=== PATIENT | male | born 2000 | race Caucasian/White ===

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

== ENCOUNTER 2024-01-25 17:22 | Emergency (ER) | payer BC, SELFPAY ==
[2024-01-25 17:45] VITALS: BP 163/101; PULSE 93; RESP 18; TEMP 36.9; O2SAT 96; BMI 39.9
--- NOTE | 2024-01-25 17:50 | XR_ITS ---
PROCEDURE INFORMATION: Exam: XR Abdomen Exam date and time: 01/25/2024 5:46 PM Age: 23 years old Clinical indication: Constipation TECHNIQUE: Imaging protocol: Radiologic exam of the abdomen. Views: Frontal supine view of the abdomen. 1 View. COMPARISON: [id number] XR lumbar spine min 4V 04/20/2018 3:54 PM FINDINGS: Gastrointestinal tract: Moderate fecal burden in the proximal colon. Otherwise, Unremarkable bowel gas pattern. Intraperitoneal space: No free air. Bones/joints: Unremarkable. IMPRESSION: Moderate fecal burden in the proximal colon. Otherwise, Unremarkable bowel gas pattern.
--- NOTE | 2024-01-25 17:54 | EXP.UTC ---
Discharge Plan Disposition Patient Disposition: Home, Self-Care Condition: Good Prescriptions Prescriptions: New polyethylene glycol 3350 [Miralax] 17 gram/dose powder 17 g PO DAILY PRN (Reason: constipation) Qty: 510 0RF Referrals Follow up/Referrals: Alysha De La Torre [Primary Care Provider] - See instructions Activity Restrictions/Add. Instructions Additional Instructions/Restrictions: Drink Magneisum Citrate as directed Take Miralax as directed Follow up with your Family Doctor if no improvement or any worsening of symptoms Return if needed Straight to ER if any life threatening symptoms, worsening of pain or vomiting Clinical Impressions Clinical Impression: Constipation Stand Alone Forms Stand Alone Forms: Work/School Release Instructions Patient Instructions: DI for Constipation, Magnesium Citrate Print Language Print Language: Korean Discharge ED Provider: Bela Villanueva [facility] [place] General Stated complaint: Constipation,abdominal pain Mode of Arrival: Ambulatory Source of Information: Patient Limitations: No Limitations Time Seen by Provider: 01/25/24 17:54 Description of Symptoms (Recalled from Triage Doc. by RN): PATIENT C/O MID-ABDOMINAL PAIN X 4 DAYS. HE STATES HE NORMALLY HAS A BOWEL MOVEMENT DAILY, AND HIS LAST NORMAL BOWEL MOVEMENT WAS ON FRIDAY (01/20). PATIENT STATES HE DID VOMIT A LITTLE ONCE TODAY, BUT STATES HE THINKS IT WAS DUE TO COUGHING. HEENT Symptoms (Recalled from RN notes): No Resp Symptoms (Recalled from RN notes): No Skin Symptoms (Recalled from RN notes): No MS Symptoms (Recalled from RN notes): No Functional Status (Recalled from RN notes): WNL History of Present Illness Provider Complaint: Patient states that he feels like he is constipated States he has been having discomfort around his naval area, States he normally has a bowel movement daily but his last normal bowel movement was on Fri earlier today he had a coughing fit and it made him vomit but doesnt think it was from the constipation and denies vomiting stool Denies watery stools, denies fever Related Data Previous Rx's ?Medication ?Instructions ?Recorded polyethylene glycol 3350 17 17 g PO DAILY PRN constipation 01/25/24 gram/dose oral powder (Miralax) #510 grams Allergies Allergy/AdvReac Type Severity Reaction Status Date / Time No Known Allergies Allergy Verified 12/03/21 09:41 Worker's Comp Is this a Worker's Comp case?: No [facility] Disclaimer: The information contained in this section may have been updated after the patient was seen, as this information can be updated by other users. Surgical History (Updated 01/25/24 @ 17:54 by Meg Belcher RN) History of tonsillectomy Social History Smoking Status: Never smoker alcohol intake: never substance use type: denies use current occupational status: employed Travel in the last 8 weeks: None ROS Obtained: Yes All systems reviewed & no additional complaints except as documented and Yes Systems reviewed as appropriate & no additional complaints except as documented Constitutional Constitutional: Reports system reviewed and no additional complaints, except as documented and Reports as per HPI ENT Ears, Nose, Mouth, and Throat: Reports system reviewed and no additional complaints, except as documented and Reports as per HPI Cardiovascular Cardiovascular: Reports system reviewed and no additional complaints, except as documented and Reports as per HPI Respiratory Respiratory: Reports system reviewed and no additional complaints, except as documented and Reports as per HPI Gastrointestinal Gastrointestingal: Reports system reviewed and no additional complaints, except as documented, as per HPI, constipation, cramping (crampy like achy pain) and vomiting (x 1 earlier after coughing episode); Denies diarrhea, fecal incontinence, heartburn, hematochezia or melena Physical Exam General General appearance: alert and in no apparent distress ENT ENT exam: Present mucous membranes moist Respiratory Respiratory exam: Present normal lung sounds bilaterally; Absent respiratory distress or wheezes Cardiovascular Cardiovascular exam: Present regular rate, normal rhythm and normal heart sounds Abdominal Exam Abdominal exam: Present soft and normal bowel sounds; Absent distention or tenderness Neurological Exam Neurological exam: Present alert, oriented X3 and normal gait Medical Decision Making Medical Records Screening: Per USPSTF and CDC recommendations, given the prevalence of disease in our region, it is our hospital?s policy to screen for HIV and viral Hepatitis for all patients aged 18 and over and those with ongoing risk factors. Andre Inquiry Pt receiving controlled substance: No Andre was queried for this patient: No Vital Signs: 01/25/24 17:45 Temperature 98.5 F Temperature Source Oral Pulse Rate [Left Brachial] 93 H Respiratory Rate 18 Blood Pressure [Left Arm] 163/101 H Blood Pressure Mean [Left Arm] 121 Blood Pressure Source [Left Arm] Automatic Cuff Blood Pressure Position [Left Arm] Sitting 02 Sat by Pulse Oximetry 96 Oxygen Delivery Method Room Air Orders (Tests/Meds): ORDERS Category Date Time Status KUB (single view) [XR KUB] Stat Exams 01/25/24 17:50 Ordered Radiology Data #1: Image(s): KUB Image Reviewed: Yes I have reviewed radiologist's interpretation IMPRESSION: Moderate fecal burden in the proximal colon. Otherwise, Unremarkable bowel gas pattern.
[2024-01-25] MEDS: MAGNESIUM CITRATE 10OZ BOTTLE 10 OZ PO (19:11)
[2024-01-25 19:16] VITALS: BP 155/99; PULSE 93; RESP 18; TEMP 36.9; O2SAT 96
== END 2024-01-25 19:21 | disposition home or self-care (01) ==
PROVIDERS: Emergency Provider Nurse Practitioner; PCP Nurse Practitioner Family
DX: R10.815 Periumbilic abdominal tenderness (principal); K59.00 Constipation, unspecified
CPT/HCPCS: 74018; 99212; 99214; G0463

== ENCOUNTER 2024-02-11 16:56 | Emergency (ER) | payer BC, SELFPAY ==
[2024-02-11 17:18] VITALS: BP 126/76; PULSE 120; RESP 20; TEMP 37.6; O2SAT 97; BMI 38.2
--- NOTE | 2024-02-11 17:25 | EXP.UTC ---
Discharge Plan Disposition Patient Disposition: Home, Self-Care Condition: Good Prescriptions Prescriptions: New amoxicillin 875 mg tablet 875 mg PO Q12H Qty: 20 0RF [id number] [Bromfed DM] 2-30-10 mg/5 mL syrup 10 ml PO Q6H PRN (Reason: cold symptoms) Qty: 200 0RF Referrals Follow up/Referrals: Alysha De La Torre [Primary Care Provider] - See instructions Activity Restrictions/Add. Instructions Additional Instructions/Restrictions: *Monitor Temp, Over the counter Motrin or Tylenol as directed/as needed Tylenol every 4 hours and Motrin every 6 hours (as long as your family doctor has told you that you can take it) for fever or pain. and straight to ER if unable to lower temp less than 101.0 after medication given Rest Make sure to drink plenty of fluids *Sleep elevated *Humidifier/Vaporizer *Bromfed may cause drowsiness. Know how it effects you (your child) before driving, caring for small child, or sending your child to school. Not other antihistamines/allergy medications while taking bromfed Follow up IMMEDIATELY for new or worsening symptoms or no Noticeable improvement over the next 48-72 hours. 911 for difficulty breathing or swallowing Clinical Impressions Clinical Impression: Otitis media Stand Alone Forms Stand Alone Forms: Work/School Release Instructions Patient Instructions: DI for Otitis Media (Middle Ear Infection)-Child, Ear Infections (Alternative Therapy), DI for Fever (Symptom) -- Adult, DI for Viral Syndrome Print Language Print Language: Slovenian Discharge ED Provider: Bela Villanueva [facility] [place] General Stated complaint: cough, fever Mode of Arrival: Ambulatory Source of Information: Patient Time Seen by Provider: 02/11/24 17:25 Description of Symptoms (Recalled from Triage Doc. by RN): FEVER, YOUNGBLOOD AND COUGH HEENT Symptoms (Recalled from RN notes): Yes Resp Symptoms (Recalled from RN notes): Yes Skin Symptoms (Recalled from RN notes): No MS Symptoms (Recalled from RN notes): No Functional Status (Recalled from RN notes): WNL History of Present Illness Provider Complaint: Patient states that for the last couple of days he has been having fevers on and off, headache, pressure in his ears and cough States today he was still having fevers on and off and pressure in his ears so he came in to get checked States that niece was dx with viral infection today not sure if he may have caught something from her or not Related Data Previous Rx's ?Medication ?Instructions ?Recorded amoxicillin 875 mg tablet 875 mg PO Q12H #20 tabs 02/11/24 [id number]-[id number] 10 ml PO Q6H PRN cold symptoms 02/11/24 2 mg-30 mg-10 mg/5 mL oral syrup #200 mL (Bromfed DM) Allergies Allergy/AdvReac Type Severity Reaction Status Date / Time No Known Allergies Allergy Verified 12/03/21 09:41 Worker's Comp Is this a Worker's Comp case?: No [facility] Disclaimer: The information contained in this section may have been updated after the patient was seen, as this information can be updated by other users. Surgical History (Updated 01/25/24 @ 17:54 by Meg Belcher RN) History of tonsillectomy Social History Smoking Status: Never smoker alcohol intake: never substance use type: denies use current occupational status: employed Travel in the last 8 weeks: None ROS Obtained: Yes All systems reviewed & no additional complaints except as documented and Yes Systems reviewed as appropriate & no additional complaints except as documented Constitutional Constitutional: Reports system reviewed and no additional complaints, except as documented, Reports as per HPI, Reports fever(s) and Reports headache(s) ENT Ears, Nose, Mouth, and Throat: Reports system reviewed and no additional complaints, except as documented, Reports as per HPI, Reports otalgia and Reports headache(s) Cardiovascular Cardiovascular: Reports system reviewed and no additional complaints, except as documented and Reports as per HPI Respiratory Respiratory: Reports system reviewed and no additional complaints, except as documented, Reports as per HPI, Denies shortness of breath and Denies cough Neurologic Neurologic: Reports headache(s) Physical Exam General General appearance: alert and in no apparent distress ENT ENT exam: Present mucous membranes moist Expanded ENT Exam TM/Canal exam: Right TM: erythema and Bilateral TM: bulging Nose exam: Absent sinus tenderness Throat exam: Present normal inspection Respiratory Respiratory exam: Present normal lung sounds bilaterally; Absent respiratory distress or wheezes Cardiovascular Cardiovascular exam: Present regular rate, normal rhythm and tachycardia Neurological Exam Neurological exam: Present alert, oriented X3 and normal gait Medical Decision Making Medical Records Screening: Per USPSTF and CDC recommendations, given the prevalence of disease in our region, it is our hospital?s policy to screen for HIV and viral Hepatitis for all patients aged 18 and over and those with ongoing risk factors. Andre Inquiry Pt receiving controlled substance: No Andre was queried for this patient: No Vital Signs: 02/11/24 17:18 Temperature 99.6 F Temperature Source Oral Pulse Rate [Left Brachial] 120 H Respiratory Rate 20 Blood Pressure [Left Arm] 126/76 Blood Pressure Mean [Left Arm] 92 02 Sat by Pulse Oximetry 97 Lab Data Lab results reviewed: Yes I reviewed the patient's lab results. Medical Decision Narrative: Discussed COVID testing and URP with patient and he declined Will cover for otitis media and patient will follow up if fevers continue or if he develops any other symptoms
[2024-02-11 17:36] LABS: UTC Influenza A Antigen Negative (Negative); UTC Influenza B Antigen Negative (Negative)
[2024-02-11 17:44] VITALS: BP 126/76; PULSE 120; RESP 20; TEMP 37.6
== END 2024-02-11 17:48 | disposition home or self-care (01) ==
PROVIDERS: Emergency Provider Nurse Practitioner; PCP Nurse Practitioner Family
DX: H66.93 Otitis media, unspecified, bilateral (principal); R50.9 Fever, unspecified; R51.9 Headache, unspecified; R05.9 Cough, unspecified; H92.03 Otalgia, bilateral
CPT/HCPCS: 87804; 99212; G0381

== ENCOUNTER 2024-06-06 09:03 | Emergency (ER) | payer BC, SELFPAY ==
--- NOTE | 2024-06-06 09:53 | EXP.UTC ---
Discharge Plan Disposition Patient Disposition: Home, Self-Care Condition: Good Prescriptions Prescriptions: New cyclobenzaprine 10 mg Tablet 10 mg PO BID PRN (Reason: Muscle Spasm) Qty: 20 0RF methylprednisolone 4 mg Tablets,Dose Pack 4 mg PO DIRECTED 6 Days Qty: 21 0RF Rx Instructions: Take 1 pack as directed for 6 days Referrals Follow up/Referrals: Alysha De La Torre [Primary Care Provider] - See instructions Activity Restrictions/Add. Instructions Additional Instructions/Restrictions: Go home and rest. It would be best if you rested tomorrow too. No heavy lifting & No twisting for the next few days. Take the oral medications as directed. The muscle relaxer (cyclobenzaprine--Flexeril) will make you drowsy, so don't drive or operate heavy machinery after taking it. Don't start the oral steroids (medrol dose pack) until tomorrow, since you had the shots in here today. Follow up with your regular doctor. GO TO THE ER FOR ANY WORSENING SYMPTOMS OR CONCERN, ESPECIALLY BOWEL OR BLADDER ISSUES, SADDLE AREA NUMBNESS, FEVER, ETC Clinical Impressions Clinical Impression: Low back pain Stand Alone Forms Stand Alone Forms: Work/School Release Instructions Patient Instructions: Low Back Pain, DI for Low Back Pain, Cyclobenzaprine, Ketorolac Injection, Dexamethasone Injection Print Language Print Language: Tajik Discharge ED Provider: Irving Briscoe [facility] General Stated complaint: lower back pain Time Seen by Provider: 06/06/24 09:53 History of Present Illness Provider Complaint: He states that for around the past 1 week he has had worsening right sided low back pain that radiates down his right leg. He denies any falls or preceding traumas. He states that he has had pain like this before, but this time it seems worse that it has been. He denies any fever/chills/urinary symptoms. Related Data Previous Rx's ?Medication ?Instructions ?Recorded cyclobenzaprine 10 mg tablet 10 mg PO BID PRN Muscle Spasm #20 06/06/24 tabs methylprednisolone 4 mg tablets in 4 mg PO DIRECTED 6 days #21 tabs 06/06/24 a dose pack Allergies Allergy/AdvReac Type Severity Reaction Status Date / Time No Known Allergies Allergy Verified 12/03/21 09:41 [facility] Disclaimer: The information contained in this section may have been updated after the patient was seen, as this information can be updated by other users. Surgical History (Updated 01/25/24 @ 17:54 by Meg Belcher RN) History of tonsillectomy Social History Smoking Status: Never smoker alcohol intake: never substance use type: denies use current occupational status: employed Travel in the last 8 weeks: None Have you lived/traveled outside [place] in past 30 days?: No Contact w/someone who lives/traveled outside [place] past 30 days?: No Exposure to someone with infectious disease in past 14 days?: No Do you have a fever (greater than 100.4 F or 38 C)?: No Have you tested positive for COVID-19: No Exposed to someone with COVID-19 in past 14 days?: No Do you have a sore throat?: No Do you have a cough?: No Do you have any weakness?: No Do you have any diarrhea?: No Are you experiencing any unusual bleeding?: No Do you have any muscle aches/pain?: No Do you have any abdominal pain?: No Are you experiencing loss of taste or smell?: No ROS Obtained: Yes All systems reviewed & no additional complaints except as documented Constitutional Constitutional: Denies chills and Denies fever(s) Eyes Eyes: Denies eye discharge ENT Ears, Nose, Mouth, and Throat: Denies dizziness, Denies otalgia, Denies neck pain and Denies sore throat Cardiovascular Cardiovascular: Denies chest pain Respiratory Respiratory: Denies shortness of breath, Denies chest congestion, Denies cough, Denies stridor and Denies wheezing Gastrointestinal Gastrointestingal: Denies nausea or vomiting Musculoskeletal Musculoskeletal: Reports as per HPI, Reports back pain and Denies neck pain Integumentary/Breasts Skin/Breast: Denies rash Neurologic Neurologic: Denies dizziness and Denies paresthesias Allergic/Immunologic Allergic/Immunologic: Denies wheezing Physical Exam General General appearance: alert and in no apparent distress Head Head exam: atraumatic, normocephalic and normal inspection Eye Eye exam: Present normal appearance, PERRL and EOMI ENT ENT exam: Present normal exam, normal oropharynx, mucous membranes moist, TM's normal bilaterally and normal external ear exam Neck Neck exam: Present normal inspection, full ROM and trachea midline; Absent meningismus or lymphadenopathy Chest Chest inspection: Present normal inspection and symmetric chest wall rise; Absent tenderness Respiratory Respiratory exam: Present normal lung sounds bilaterally; Absent respiratory distress Cardiovascular Cardiovascular exam: Present regular rate and normal rhythm; Absent JVD Abdominal Exam Abdominal exam: Present soft and normal bowel sounds; Absent distention, tenderness or guarding Extremities Exam Extremities exam: Present normal inspection, full ROM and normal capillary refill; Absent calf tenderness Back Exam Back exam: Present normal inspection; Absent tenderness Neurological Exam Neurological exam: Present alert, oriented X3, CN II-XII intact, normal gait and reflexes normal; Absent motor sensory deficit Expanded Neurological Exam Speech: Present fluid speech Cranial nerves: Normal: EOM function (II, III, IV, ), facial sensation (V), facial palsy (VII), gag reflex (IX), spinal accessory function (XI) and tongue deviation (XII) Cerebellar function: normal gait Motor strength - LUE: 5/5 Motor strength - RUE: 5/5 Motor strength - LLE: 5/5 Motor strength - RLE: 5/5 Upper motor neuron exam: Normal: erika neglect and sensory extinction Sensory exam upper extremity: Normal: light touch and 2 point discrimination Sensory exam lower extremity: Normal: light touch and 2 point discrimination DTR: 2+: biceps (L), biceps (R), patellar (L), patellar (R), Achilles tendon (L) and Achilles tendon (R) Spinal cord function: Absent saddle anesthesia Psychiatric Psychiatric exam: Present normal affect and normal mood Skin Skin exam: Present warm, dry, intact and normal color Lymphatic Lymphatic Findings: no adenopathy Medical Decision Making Medical Records Medical records reviewed: No I reviewed the patient's medical records. Screening: Per USPSTF and CDC recommendations, given the prevalence of disease in our region, it is our hospital?s policy to screen for HIV and viral Hepatitis for all patients aged 18 and over and those with ongoing risk factors. Andre Inquiry Pt receiving controlled substance: No
[2024-06-06 09:55] VITALS: BP 126/80; PULSE 90; RESP 18; TEMP 37.1; O2SAT 98; BMI 38.1
[2024-06-06] MEDS: KETOROLAC 60MG/2ML VIAL 60 MG IM (10:17)
[2024-06-06] MEDS: DEXAMETHASONE 4MG/ML 1ML VIAL 8 MG IM (10:17)
[2024-06-06 10:46] VITALS: BP 126/80; PULSE 90; RESP 18; TEMP 37.1
== END 2024-06-06 10:46 | disposition home or self-care (01) ==
PROVIDERS: Emergency Provider Nurse Practitioner Family; PCP Nurse Practitioner Family
DX: M54.50 Low back pain, unspecified (principal)
CPT/HCPCS: 99212; G0381; J1100; J1885